=== PATIENT | male | born 1940 | race Caucasian/White ===

== ENCOUNTER → 2017-02-27 | Outpatient (CLI) | payer OTHER | END | disposition home or self-care (01) | LOC: CFH 09:11 | PROVIDERS: ATTEND Family Medicine | DX: M16.11 Unilateral primary osteoarthritis, right hip (principal); M47.896 Other spondylosis, lumbar region; M25.78 Osteophyte, vertebrae | CPT/HCPCS: 72202 ==

== ENCOUNTER 2017-11-21 04:09 | Emergency (ER) | payer OTHER ==
[~2017-11-21] VITALS: Ht 177.8 cm; Wt 66.4 kg
[2017-11-21] MEDS ORDERED: SODIUM CHLORIDE 0.9% 1,000ML IVBOLUS ONE (05:00)
[2017-11-21] MEDS ORDERED: SODIUM CHLORIDE FLUSH 10ML SYR IVF ONE (05:00)
[2017-11-21 05:10] LABS: RAPID INFLUENZA A Negative (Negative); RAPID INFLUENZA B Negative (Negative)
[2017-11-21 05:25] LABS: ALBUMIN 3.5 g/dL (3.4-5.0); ANION GAP 8 mmol/L (5-15); CALCIUM 8.6 mg/dL (8.5-10.1); CHLORIDE 109 mmol/L (98-107); CREATININE 0.76 mg/dL (0.7-1.3)
[2017-11-21 05:44] LABS: BASOPHILS # (AUTO) 0.03 x10^3/uL (0-0.1); BASOPHILS % (AUTO) 1 % (0-1); EOSINOPHILS # (AUTO) 0.08 x10^3/uL (0-0.4); EOSINOPHILS % (AUTO) 2 % (1-7); LYMPHOCYTES # (AUTO) 1.53 x10^3/uL (1-3.4); LYMPHOCYTES % (AUTO) 40 % (22-44); MD SCAN; MEAN CORPUSCULAR HEMOGLOBIN 32.2 pg (27.5-34.5); MEAN CORPUSCULAR HGB CONC 33.4 g/dL (33.2-36.2); MEAN CORPUSCULAR VOLUME 96.4 fL (81-97); MEAN PLATELET VOLUME 13.3 fL (7.4-10.4); MONOCYTES # (AUTO) 0.42 x10^3/uL (0.2-0.8); MONOCYTES % (AUTO) 11 % (2-9); NEUTROPHILS # (AUTO) 1.78 x10^3/uL (1.8-6.8); NEUTROPHILS % (AUTO) 46 % (42-75); PLATELET COUNT 140 x10^3/uL (130-400); RED BLOOD COUNT 4.63 x10^6/uL (4.38-5.82); RED CELL DISTRIBUTION WIDTH 13.3 % (9.4-14.8)
[2017-11-21 06:15] LABS: MICROSCOPIC NOT IND
[2017-11-21 06:17] LABS: CULTURE INDICATED? NO
[2017-11-21 07:04] VITALS: BP 129/90
== END 2017-11-21 07:06 | disposition home or self-care (01) ==
LOC: ED 06:00
DX: B34.9 Viral infection, unspecified (principal)
CPT/HCPCS: 36415; 71046; 80048; 81003; 82040; 83605; 85025; 87040; 87400; 96360; 99285; J7030

== ENCOUNTER → 2017-11-22 | Outpatient (CLI) | payer OTHER ==
[~2017-11-22] MED LIST: OMNIPAQUE 350 MG/ML, 100ML BOTTLE ONE
== END | disposition home or self-care (01) ==
LOC: CFH 11:29
PROVIDERS: ATTEND Specialist
DX: N32.3 Diverticulum of bladder (principal); N28.1 Cyst of kidney, acquired; N20.0 Calculus of kidney; M51.36 Other intervertebral disc degeneration, lumbar region
CPT/HCPCS: 74177; Q9967

== ENCOUNTER → 2018-06-14 | Outpatient (CLI) | payer OTHER | END | disposition home or self-care (01) | LOC: RAD 15:49 | PROVIDERS: ATTEND Family Medicine | DX: M25.551 Pain in right hip (principal); M25.552 Pain in left hip; M25.561 Pain in right knee ==

== ENCOUNTER → 2018-10-31 | Outpatient (CLI) | payer OTHER ==
[~2018-10-31] MED LIST changes: +CEFD300C37 PO; -OMNIPAQUE 350 MG/ML, 100ML BOTTLE ONE; +TAMS-11 PO
== END | disposition home or self-care (01) ==
LOC: CFH 14:12
PROVIDERS: ATTEND Family Medicine
DX: R91.8 Other nonspecific abnormal finding of lung field (principal)
CPT/HCPCS: 71046

== ENCOUNTER 2018-11-01 16:35 | Inpatient (IN) | payer OTHER ==
[~2018-11-01] VITALS: Ht 177.8 cm; Wt 69.2 kg
[2018-11-01] MEDS ORDERED: SODIUM CHLORIDE FLUSH 10ML SYR IVF ONE (17:00)
[2018-11-01] MEDS ORDERED: AZITHROMYCIN 500 MG in SODIUM CHLORIDE 0.9% 250 ML IVPB ONE (17:00)
[2018-11-01] MEDS ORDERED: CEFTRIAXONE 1,000 MG in SODIUM CHLORIDE 0.9% 50 ML IVPB ONE (17:00)
[2018-11-01] MEDS ORDERED: PLEASE ENTER HEIGHT AND WEIGHT MC SCH (17:00)
[2018-11-01] MEDS ORDERED: CEFTRIAXONE PMX 1GM/50ML 50 ML ONE (17:13)
[2018-11-01 17:22] LABS: MEAN CORPUSCULAR HEMOGLOBIN 32.4 pg (27.5-34.5); MEAN CORPUSCULAR HGB CONC 33.5 g/dL (33.2-36.2); MEAN CORPUSCULAR VOLUME 96.7 fL (81-97); PLATELET COUNT 151 x10^3/uL (130-400); RED BLOOD COUNT 4.58 x10^6/uL (4.38-5.82); RED CELL DISTRIBUTION WIDTH 14.5 % (9.4-14.8)
[2018-11-01 17:34] LABS: ALBUMIN 2.8 g/dL (3.4-5.0); ANION GAP 12 mmol/L (5-15); CALCIUM 8.6 mg/dL (8.5-10.1); CHLORIDE 102 mmol/L (98-107)
[2018-11-01 17:37] LABS: MD YES
[2018-11-01 17:40] LABS: BAND#(MANUAL) 0.97 x10^3/uL; BANDS%(MANUAL) 9 % (0-7); EOS#(MANUAL) 0.22 x10^3/uL (0.0-0.4); EOS% (MANUAL) 2 % (1-7); LYMPH#(MANUAL) 0.76 x10^3/uL (1-3.4); LYMPHS% (MANUAL) 7 % (22-44); METAMYELOCYTES# (MANUAL) 0.11 x10^3/uL (0-0); METAMYELOCYTES% (MANUAL) 1 % (0-1); MONOS#(MANUAL) 0.76 x10^3/uL (0.3-2.7); MONOS% (MANUAL) 7 % (2-9); SEG#(MANUAL) 7.99 x10^3/uL (1.8-6.8); SEGS% (MANUAL) 74 % (42-75)
[2018-11-01 17:41] LABS: <PLATELET ESTIMATE> ADEQUATE; <RBC MORPHOLOGY> NORMAL; LARGE PLATELETS 2+
[2018-11-01 17:42] LABS: TOXIC GRAN 1+
[2018-11-01] MEDS ORDERED: POTASSIUM CHLORIDE 20 MEQ TAB.ER.PRT ONE (17:48)
[2018-11-01] MEDS ORDERED: methylPREDNISolone SOD SUCC 125 MG/2 ML ONE (17:57)
[2018-11-01] MEDS ORDERED: ALBUTEROL/IPRATROPIUM 2.5MG/0.5MG, 3 ML NPPB SCH (18:00)
[2018-11-01] MEDS ORDERED: methylPREDNISolone SOD SUCC 125 MG/2 ML IVP ONE (18:00)
[2018-11-01] MEDS ORDERED: POTASSIUM CHLORIDE 20 MEQ TAB.ER.PRT PO ONE (18:00)
[2018-11-01] MEDS ORDERED: ALBUTEROL/IPRATROPIUM 2.5MG/0.5MG, 3 ML ONE (18:07)
[2018-11-01] MEDS ORDERED: SODIUM CHLORIDE FLUSH 10ML SYR IVF PRN (19:30)
[2018-11-01] MEDS ORDERED: TAMS-11 PO (19:32)
[2018-11-01 20:00] VITALS: BP 158/104
[2018-11-01 20:45] LABS: MICROSCOPIC AUTO
[2018-11-01 20:47] LABS: CULTURE INDICATED? NO
[2018-11-01] MEDS ORDERED: POTASSIUM CHLORIDE 40 MEQ in SODIUM CHLORIDE 0.9% 500 ML IV ONE (21:00)
[2018-11-01] MEDS ORDERED: BISACODYL 10 MG SUPP PR PRN (21:00)
[2018-11-01] MEDS ORDERED: LABETALOL 5MG/ML, 20ML IVPush PRN (21:00)
[2018-11-01] MEDS ORDERED: ONDANSETRON ODT 4 MG PO PRN (21:00)
[2018-11-01] MEDS ORDERED: GABAPENTIN 300 MG CAPSULE PO PRN (21:00)
[2018-11-01] MEDS ORDERED: ONDANSETRON 2MG/ML, 2ML IVPush PRN (21:00)
[2018-11-01] MEDS ORDERED: DOCUSATE 100 MG CAPSULE PO PRN (21:00)
[2018-11-01] MEDS ORDERED: POLYETHYLENE GLYCOL 17 GM PACKET PO PRN (21:00)
[2018-11-01] MEDS ORDERED: morphine SULFATE 10 MG/ML, 1ML IVPush PRN (21:00)
[2018-11-01] MEDS ORDERED: hydrALAzine 20 MG/ML, 1ML IVPush PRN (21:00)
[2018-11-01] MEDS ORDERED: PROMETHAZINE 25 MG/ML, 1ML IM PRN (21:00)
[2018-11-01] MEDS ORDERED: ACETAMINOPHEN 325 MG TABLET PO PRN (21:00)
[2018-11-01 21:30] VITALS: BP 142/81
[2018-11-01 21:30] LABS: FREE T4 (FREE THYROXINE) 1.32 ng/dL (0.76-1.46); THYROID STIMULATING HORMONE 2.42 mIU/L (0.358-3.740)
[2018-11-01 21:35] LABS: HEMOGLOBIN A1C 5.6 % (4.2-6.3)
[2018-11-01] MEDS: HEPARIN 5,000 UNITS/ML, 1ML SQ SCH (22:40)
[2018-11-01] MEDS: DOXYCYCLINE 100MG TABLET PO SCH (22:40)
[2018-11-01] MEDS: SODIUM CHLORIDE 0.9% 1,000 ML IV SCH (22:41)
[2018-11-01] MEDS ORDERED: OMNIPAQUE 350 MG/ML, 100ML BOTTLE ONE (22:49)
[2018-11-02 00:20] VITALS: BP 136/85
[2018-11-02] MEDS: HEPARIN 5,000 UNITS/ML, 1ML SQ SCH ×3 (04:36→21:00)
[2018-11-02 05:33] LABS: MEAN CORPUSCULAR HEMOGLOBIN 31.9 pg (27.5-34.5); MEAN CORPUSCULAR HGB CONC 33.1 g/dL (33.2-36.2); MEAN CORPUSCULAR VOLUME 96.6 fL (81-97); RED BLOOD COUNT 4.11 x10^6/uL (4.38-5.82); RED CELL DISTRIBUTION WIDTH 14.3 % (9.4-14.8)
[2018-11-02 05:41] LABS: CHLORIDE 109 mmol/L (98-107)
[2018-11-02 05:48] LABS: RAPID INFLUENZA A Negative (Negative); RAPID INFLUENZA B Negative (Negative)
[2018-11-02 05:48] LABS: ALANINE AMINOTRANSFERASE 51 U/L (12-78); ALBUMIN 2.4 g/dL (3.4-5.0); ALKALINE PHOSPHATASE 75 U/L (45-117); ANION GAP 7 mmol/L (5-15); BILIRUBIN,TOTAL 0.6 mg/dL (0.2-1.0); CALCIUM 7.7 mg/dL (8.5-10.1); CHOL/HDL RATIO 7.3; CHOLESTEROL, TOTAL 131 mg/dL (140-239); CREATININE 0.64 mg/dL (0.7-1.3); HDL CHOL % 14 % (26-37); HDL CHOLESTEROL (DIRECT) 18 mg/dL (40-60); LDL CHOLESTEROL,CALCULATED 93 mg/dL (54-169); LDL/HDL RATIO 5.2 (0.5-3.0); TOTAL PROTEIN 6.4 g/dL (6.4-8.2); TRIGLYCERIDES 100 mg/dL (50-200); VLDL CHOLESTEROL 20 mg/dL (0-25)
[2018-11-02 05:52] LABS: MEAN PLATELET VOLUME 14.3 fL (7.4-10.4); PLATELET COUNT 139 x10^3/uL (130-400)
[2018-11-02 05:53] LABS: MD YES
[2018-11-02 05:55] LABS: BAND#(MANUAL) 0.13 x10^3/uL; BANDS%(MANUAL) 2 % (0-7); MONOS#(MANUAL) 0.25 x10^3/uL (0.3-2.7); MONOS% (MANUAL) 4 % (2-9)
[2018-11-02 05:56] LABS: <RBC MORPHOLOGY> NORMAL; LYMPH#(MANUAL) 0.76 x10^3/uL (1-3.4); LYMPHS% (MANUAL) 12 % (22-44); SEG#(MANUAL) 5.17 x10^3/uL (1.8-6.8); SEGS% (MANUAL) 82 % (42-75)
[2018-11-02 05:57] LABS: <PLATELET ESTIMATE> ADEQUATE; LARGE PLATELETS 2+
[2018-11-02] MEDS: DOXYCYCLINE 100MG TABLET PO SCH ×2 (09:35→21:11)
[2018-11-02] MEDS: SODIUM CHLORIDE 0.9% 1,000 ML IV SCH (09:36)
[2018-11-02] MEDS: TAMSULOSIN 0.4 MG CAP.ER.24H PO SCH (09:36)
[2018-11-02 10:09] VITALS: BP 112/69
[2018-11-02 12:49] VITALS: BP 127/76
[2018-11-02] MEDS: GUAIFENESIN 100 MG/5 ML, 5ML UDC PO PRN ×2 (13:37→21:11)
[2018-11-02] MEDS ORDERED: CEFTRIAXONE PMX 1GM/50ML 50 ML IV SCH (19:00)
[2018-11-02 19:49] VITALS: BP 130/84
[2018-11-03 02:40] VITALS: BP 118/71
[2018-11-03] MEDS: HEPARIN 5,000 UNITS/ML, 1ML SQ SCH ×2 (04:35→13:00)
[2018-11-03 06:56] VITALS: BP 129/76
[2018-11-03] MEDS: TAMSULOSIN 0.4 MG CAP.ER.24H PO SCH (09:00)
[2018-11-03] MEDS ORDERED: CEFD300C37 PO (09:06)
[2018-11-03] MEDS: DOXYCYCLINE 100MG TABLET PO SCH (10:03)
[2018-11-03] MEDS ORDERED: CEFTRIAXONE PMX 1GM/50ML 50 ML IV SCH (11:00)
[2018-11-03] MEDS ORDERED: CEFDINIR 300 MG CAPSULE PO SCH (21:00)
== END 2018-11-03 14:24 | disposition home or self-care (01) | DRG 193 ==
LOC: ED 17:28 → EDIP 19:22 → 3NE 19:59
PROVIDERS: ADMIT Internal Medicine; ATTEND Internal Medicine
DX: J15.9 Unspecified bacterial pneumonia (principal); J96.01 Acute respiratory failure with hypoxia; E43 Unspecified severe protein-calorie malnutrition; J44.0 Chronic obstructive pulmonary disease with (acute) lower respiratory infection; N40.0 Benign prostatic hyperplasia without lower urinary tract symptoms; E87.6 Hypokalemia; Z79.899 Other long term (current) drug therapy; Z88.0 Allergy status to penicillin; Z68.21 Body mass index [BMI] 21.0-21.9, adult
CPT/HCPCS: 36415; 84145; 87400; J7620; 71046; 71275; 80048; 80053; 80061; 81001; 82040; 83036; 83605; 83735; 84439; 84443; 85025; 87040; 87070; 87205; 93005; 93306; 94640; 96365; 96366; 96368; G0378; J0456; J0696; J1644; J3480; Q9967; J2930; J7030; J7040; J7050

== ENCOUNTER 2018-11-05 10:18 | Emergency (ER) | payer OTHER ==
[~2018-11-05] VITALS: Ht 177.8 cm; Wt 66.0 kg
[2018-11-05 11:42] LABS: MEAN CORPUSCULAR HEMOGLOBIN 32.3 pg (27.5-34.5); MEAN CORPUSCULAR HGB CONC 33.6 g/dL (33.2-36.2); MEAN CORPUSCULAR VOLUME 96.2 fL (81-97); RED BLOOD COUNT 4.54 x10^6/uL (4.38-5.82); RED CELL DISTRIBUTION WIDTH 14.3 % (9.4-14.8)
[2018-11-05 11:47] LABS: ANION GAP 8 mmol/L (5-15); CHLORIDE 108 mmol/L (98-107)
[2018-11-05 11:51] LABS: ALANINE AMINOTRANSFERASE 39 U/L (12-78); ALKALINE PHOSPHATASE 78 U/L (45-117); BILIRUBIN,TOTAL 0.8 mg/dL (0.2-1.0); CREATININE 0.72 mg/dL (0.7-1.3); TOTAL PROTEIN 6.9 g/dL (6.4-8.2)
[2018-11-05 11:59] LABS: MD YES
[2018-11-05 12:00] LABS: MEAN PLATELET VOLUME 11.7 fL (7.4-10.4); PLATELET COUNT 237 x10^3/uL (130-400)
[2018-11-05 12:05] LABS: BAND#(MANUAL) 0.55 x10^3/uL; BANDS%(MANUAL) 7 % (0-7); EOS#(MANUAL) 0.47 x10^3/uL (0.0-0.4); EOS% (MANUAL) 6 % (1-7); LYMPH#(MANUAL) 1.48 x10^3/uL (1-3.4); LYMPHS% (MANUAL) 19 % (22-44); METAMYELOCYTES# (MANUAL) 0.16 x10^3/uL (0-0); METAMYELOCYTES% (MANUAL) 2 % (0-1); MONOS#(MANUAL) 0.16 x10^3/uL (0.3-2.7); MONOS% (MANUAL) 2 % (2-9); REACTIVE LYMPHS # (MANUAL) 0.08 x10^3/uL (0-0); REACTIVE LYMPHS % (MANUAL) 1 % (0-0); SEG#(MANUAL) 4.91 x10^3/uL (1.8-6.8); SEGS% (MANUAL) 63 % (42-75)
[2018-11-05 12:07] LABS: <PLATELET ESTIMATE> ADEQUATE; <RBC MORPHOLOGY> NORMAL; LARGE PLATELETS 1+; PMNS WITH VACUOLES 1+; TOXIC GRAN 1+
[2018-11-05 12:21] VITALS: BP 128/82
== END 2018-11-05 12:23 | disposition home or self-care (01) ==
LOC: ED 11:27
DX: J98.01 Acute bronchospasm (principal); Z88.0 Allergy status to penicillin; Z87.438 Personal history of other diseases of male genital organs
CPT/HCPCS: 36415; 71046; 80053; 85025; 93005; 99284

== ENCOUNTER → 2019-03-25 | Outpatient (CLI) | payer OTHER | END | disposition home or self-care (01) | LOC: CFH 08:57 | PROVIDERS: ATTEND Family Medicine | DX: M16.11 Unilateral primary osteoarthritis, right hip (principal) ==

== ENCOUNTER 2019-12-11 08:11 | Outpatient (CLI) | payer OTHER | END 2019-12-11 23:59 | disposition home or self-care (01) | LOC: CFH 08:11 | PROVIDERS: ATTEND Family Medicine | DX: I51.7 Cardiomegaly (principal); R91.8 Other nonspecific abnormal finding of lung field | CPT/HCPCS: 71046 ==

== ENCOUNTER 2019-12-15 20:03 | Emergency (ER) | payer OTHER ==
[~2019-12-15] VITALS: Ht 177.8 cm; Wt 67.7 kg
[2019-12-15] MEDS ORDERED: SODIUM CHLORIDE FLUSH 10ML SYR IVF ONE (20:30)
--- NOTE | 2019-12-15 20:35 | NUR ---
PT TO ED WITH C/O OF PAST PNEUMONIA DX. PT REPORTS PRODUCTIVE COUGH. PT REQUESTING WELL CHECK, STATES "ITS A LONG WAIT FOR THE [PRIMARY CARE] DOCTOR". PT DENIES OTHER C/O AT THIS TIME. PT CONNECTED TO ALL MONITORING, CALL LIGHT WITHIN REACH, ALL SAFETY MEASURES IN PLACE.
[2019-12-15 21:01] LABS: ALANINE AMINOTRANSFERASE 27 U/L (12-78); ALBUMIN 3.7 g/dL (3.4-5.0); ANION GAP 9 mmol/L (5-15); CALCIUM 8.4 mg/dL (8.5-10.1); CHLORIDE 108 mmol/L (98-107); CREATININE 0.82 mg/dL (0.7-1.3)
[2019-12-15 21:05] LABS: ALKALINE PHOSPHATASE 75 U/L (45-117); BILIRUBIN,TOTAL 0.7 mg/dL (0.2-1.0); TOTAL PROTEIN 6.9 g/dL (6.4-8.2); TROPONIN I < 0.015 ng/mL (0.000-0.045)
[2019-12-15 21:19] LABS: BASOPHILS # (AUTO) 0.02 x10^3/uL (0-0.1); BASOPHILS % (AUTO) 0 % (0-1); EOSINOPHILS # (AUTO) 0.03 x10^3/uL (0-0.4); EOSINOPHILS % (AUTO) 1 % (1-7); LYMPHOCYTES # (AUTO) 1.72 x10^3/uL (1-3.4); LYMPHOCYTES % (AUTO) 33 % (22-44); MD SCAN; MEAN CORPUSCULAR HEMOGLOBIN 32.5 pg (27.5-34.5); MEAN CORPUSCULAR HGB CONC 32.8 g/dL (33.2-36.2); MEAN CORPUSCULAR VOLUME 98.9 fL (81-97); MEAN PLATELET VOLUME 12.8 fL (7.4-10.4); MONOCYTES # (AUTO) 0.48 x10^3/uL (0.2-0.8); MONOCYTES % (AUTO) 9 % (2-9); NEUTROPHILS # (AUTO) 2.95 x10^3/uL (1.8-6.8); NEUTROPHILS % (AUTO) 57 % (42-75); PLATELET COUNT 141 x10^3/uL (130-400); RED BLOOD COUNT 4.63 x10^6/uL (4.38-5.82); RED CELL DISTRIBUTION WIDTH 14.1 % (9.4-14.8)
[2019-12-15] MEDS ORDERED: OMNIPAQUE 350 MG/ML, 100ML BOTTLE ONE (22:14)
--- NOTE | 2019-12-15 22:17 | NUR ---
PT TO BATHROOM WITH STEADY GAIT.
[2019-12-15 22:36] VITALS: BP 169/94
--- NOTE | 2019-12-15 22:37 | NUR ---
PT RESTING ON [place] WITH FAMILY AT FOR SUPPORT. PT DENIES FURTHER NEEDS AT THIS TIME. PT UPDATED ON POC.
== END 2019-12-15 23:04 | disposition home or self-care (01) ==
LOC: ED 20:51
DX: R05 Cough (principal); R06.00 Dyspnea, unspecified; R94.31 Abnormal electrocardiogram [ECG] [EKG]
CPT/HCPCS: 36415; 71046; 71275; 80053; 83880; 84484; 85025; 93005; 99284; Q9967

== ENCOUNTER 2020-01-31 07:53 | Emergency (ER) | payer OTHER ==
[~2020-01-31] VITALS: Ht 177.8 cm; Wt 67.0 kg
[2020-01-31 07:54] VITALS: BP 147/95
[2020-01-31] MEDS ORDERED: IBUPROFEN 200 MG TABLET ONE (08:19)
--- NOTE | 2020-01-31 08:25 | NUR ---
PT MEDICATED. XRAY AT BEDSIDE
[2020-01-31] MEDS ORDERED: IBUPROFEN 200 MG TABLET PO ONE (08:30)
--- NOTE | 2020-01-31 08:58 | NUR ---
REPORT FROM MALKA
== END 2020-01-31 10:53 | disposition home or self-care (01) ==
LOC: ED 09:03
DX: S60.031A Contusion of right middle finger without damage to nail, initial encounter (principal); W23.1XXA Caught, crushed, jammed, or pinched between stationary objects, initial encounter; Y93.89 Activity, other specified; Y92.098 Other place in other non-institutional residence as the place of occurrence of the external cause; Y99.8 Other external cause status
CPT/HCPCS: 29130; 99283

== ENCOUNTER → 2021-06-18 | Outpatient (CLI) | payer OTHER | END | disposition home or self-care (01) | LOC: CVU 10:22 | PROVIDERS: ATTEND Internal Medicine Cardiovascular Disease | DX: I08.8 Other rheumatic multiple valve diseases (principal); I11.9 Hypertensive heart disease without heart failure; I47.2 Ventricular tachycardia | CPT/HCPCS: 93306 ==